=== PATIENT | female | born 2000 | race Caucasian/White ===

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

== ENCOUNTER 2021-04-18 14:28 | Emergency (ER) | payer OTHER ==
--- NOTE | 2021-04-18 14:38 | ED Physician Documentation ---
PD HPI UPPER EXT INJURY - Stated complaint Stated Complaint: RT HAND INJ - Chief complaint Chief Complaint: Laceration - History obtained from History obtained from: Patient - History of Present Illness Location: Right, Hand Type of injury: Fall (tripped and fell with keys in hand, causing puncture of conte into palm. Also pain in wrist area.) Timing - onset: Today Timing - details: Abrupt onset, Still present Associated symptoms: No: Weakness, Numbness Similar symptoms before: Has not had sx before Review of Systems Constitutional: denies: Fever, Chills Nose: denies: Rhinorrhea / runny nose, Congestion Throat: denies: Sore throat Respiratory: denies: Cough Skin: reports: Laceration (s) (palm) Neurologic: denies: Focal weakness, Numbness PD PAST MEDICAL HISTORY - Past Medical History Past Medical History: No - Past Surgical History Past Surgical History: Yes - Allergies Allergies/Adverse Reactions: Allergies Allergy/AdvReac Type Severity Reaction Status Date / Time No Known Drug Allergies Allergy Verified 04/18/21 14:30 - Social History Does the pt smoke?: No Smoking Status: Never smoker Does the pt drink ETOH?: No Does the pt have substance abuse?: No - Immunizations Immunizations are current?: Yes - POLST Patient has POLST: No PD ED PE NORMAL - Vitals Vital signs reviewed: Yes - General General: Alert and oriented X 3, Well developed/nourished, Other (appears in pain, holding hand guarded with other hand. ) - Derm Derm: Normal color, Warm and dry - Extremities Extremities: Other (right palm with small <1 cm lac without FB nor active bleeding. Tender locally. Also tender wrist volar and dorsal. No noted deformity. Normal sensation and color of fingers. Able to flex and extend but hurts in palm with flexion middle fingers. ) Results - Vitals Vitals: Vital Signs - 24 hr 04/18/21 04/18/21 14:30 15:33 Temperature 36.5 C 36.9 C Heart Rate 69 64 Respiratory 16 16 Rate Blood Pressure 118/50 L 129/83 H O2 Saturation 100 99 Oxygen O2 Source Room air - Rads (name of study) No standard instances Radiology: Prelim report reviewed (no fractures nor FB), See rad report PD MEDICAL DECISION MAKING - ED course Complexity details: reviewed results, considered differential (will hurt through palm. Does not seem like nerve nor tendon injury. Does not need sutures. Can protect with srist splint. Wound cleaned and dressed by nursing. ), d/w patient Departure - Departure Disposition: 01 Home, Self Care Clinical Impression: Puncture wound of hand Qualifiers: Encounter type: initial encounter Foreign body presence: without foreign body Laterality: right Qualified Code(s): S61.431A - Puncture wound without foreign body of right hand, initial encounter Right wrist sprain Qualifiers: Encounter type: initial encounter Qualified Code(s): S63.501A - Unspecified sprain of right wrist, initial encounter Accidental fall Qualifiers: Encounter type: initial encounter Qualified Code(s): W19.XXXA - Unspecified fall, initial encounter Condition: Stable Record reviewed to determine appropriate education?: Yes Instructions: ED Wound Puncture General, ED Sprain Wrist Follow-Up: GRZEGORZ FLORES MD [Primary Care Provider] - Comments: Use the wrist splint to protect motion there. Use the fingers for light activity to have good motion through the tendons and muscles of the palm. Clean the wound once or twice daily with soap and water apply mild ointment. Tylenol ibuprofen as needed for pain. I would expect any injury of the muscle or ligaments and through the hand as well as the wound itself to improve over the next week or so. Recheck if signs of infection. Discharge Date/Time: 04/18/21 16:17
--- OUTSIDE RECORDS SUMMARY | 2021-04-18 14:49 | EXTERNAL MEDICAL SUMMARY RPT | Continuity of Care Document ---
:2000 Demographics Phone Unavailable Preferred Language Unknown Marital Status Unknown Holiness Affiliation Unknown Race Unknown Ethnic Group Unknown Author Organization [facility] Address [address] [place] [address] Phone Allergies Encounters Medications Problems Results
[2021-04-18] MEDS ORDERED: IBUPROFEN 600 MG TABLET PO STA (15:10)
[2021-04-18] MEDS ORDERED: ACETAMINOPHEN 325 MG TABLET PO STA (15:10)
[2021-04-18 15:35] VITALS: BP 129/83
--- NOTE | 2021-04-18 15:41 | XRAY Report ---
PROCEDURE: Wrist 3 View RT INDICATIONS: fell onto right hand/wrist TECHNIQUE: 3 views of the wrist were acquired. COMPARISON: None FINDINGS: Bones: No fractures or dislocations. No suspicious bony lesions. Suspicious soft tissue calcifications. IMPRESSION: Normal right wrist Reviewed by: Rodger Luna on 04/18/2021 3:40 PM PDT Approved by: Rodger Luna on 04/18/2021 3:40 PM PDT Station ID: [id number]
== END 2021-04-18 16:17 | disposition home or self-care (01) ==
LOC: ED 14:28
DX: S63.501A Unspecified sprain of right wrist, initial encounter (principal); S61.431A Puncture wound without foreign body of right hand, initial encounter; W01.0XXA Fall on same level from slipping, tripping and stumbling without subsequent striking against object, initial encounter
CPT/HCPCS: 73110; 99282; 99283; A9270